=== PATIENT | male | born 1960 | race Caucasian/White ===

== ENCOUNTER → 2017-05-18 | Day surgery (SDC) | payer OTHER ==
[~2017-05-18] VITALS: Ht 180.3 cm; Wt 59.7 kg
[~2017-05-18] MED LIST: AUGMENTIN 875-1 EACH PO; BENGAY/ICY HOT/30 GM TOP; DESYREL50 MG PO; HYDROCODON-ACE1 EAC4 PO; PAXIL40 M1 PO; REMERON 30 MG30 MG PO; VISTARIL50 MG PO
--- NOTE | ~2017-05-18 | CON ---
PATIENT'S NAME: STEVEN OLSON [facility] AGE: 57 Y [address] ROOM: [place] [address] LOCATION: [facility] [place] ADMIT DATE: 05/18/2017 Consultation DISCHARGE DATE: FAMILY PHYSICIAN: PHYSICIAN, NO ATTENDING PHYSICIAN: JANETTE MITCHELL ER CONSULT CHIEF COMPLAINT: Right ring finger dog bite. HISTORY OF PRESENT ILLNESS: This is a 57-year-old male, who had a dog that was known to him bit his ring finger last Monday. He states there was no risk for the dog having rabies. This happened on Monday nearly a week ago. 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 He noticed increased pain and swelling and decided to seek medical care. Today, he was seen in the emergency room by Dr. Lucy Mallory, who consulted me. PAST MEDICAL HISTORY: Reviewed. He has history of depression. CURRENT MEDICATIONS: Paxil. ALLERGIES: NO KNOWN DRUG ALLERGIES. REVIEW OF SYSTEMS: Positive for smoking 30+ pack years. PHYSICAL EXAMINATION: GENERAL: The patient is alert and oriented x3, in no acute distress. HEAD: Normocephalic, atraumatic. NECK: Supple. Trachea midline. VITAL SIGNS: He has had no fevers. EXTREMITIES: He has no pain in his hand, wrist, and elbow. There is black eschar with necrotic skin at the distal phalanx of his right index finger. There is no hematoma subungual below the nail. There is tissue necrosis and tissue missing. There is no active drainage. LABORATORY DATA AND X-RAYS: X-rays 3 views of right hand ring finger distal phalanx shows foreign body present at the region of necrosis on the radial side of the index finger. He has decreased sensation in this region. The finger tip is necrotic and black. On examining the x-ray shows a small tuft fracture. The foreign body is PATIENT'S NAME: STEVEN OLSON [facility] AGE: 57 Y [address] ROOM: [place] [address] LOCATION: [facility] [place] ADMIT DATE: 05/18/2017 Consultation DISCHARGE DATE: FAMILY PHYSICIAN: PHYSICIAN, NO ATTENDING PHYSICIAN: JANETTE MITCHELL likely either a piece of bone or tooth from the dog bite. IMPRESSION AND PLAN: Dog bite, right dominant hand, ring finger at the distal phalanx. The patient is at risk for osteonecrosis. Further, if the skin is at the worst for osteomyelitis or infection of the bone that can result in loss of life or even loss of hand. Recommend acute irrigation and debridement. He understands that due to the amount of necrotic tissue, he may need multiple surgeries including irrigation and debridements and even skin grafts. We will give him antibiotics in the form of Rocephin, followed by Augmentin. He understands the risk of new medications that can cause anaphylaxis and even . He understands the risks of anesthesia and the surgery. He has been well informed of the risks, benefits, and potential complications. Plan is to take him emergently back to the OR for irrigation and debridement. JANETTE MITCHELL DO PH/modl /[id number] d: 05/18/17 2250 t: 05/23/17 1839, CONSULTATION REPORT
--- NOTE | ~2017-05-18 | OR ---
PATIENT'S NAME: STEVEN ENCARNACION [facility] AGE: 57 Y [address] ROOM: [place] [address] LOCATION: [facility] ADMIT DATE: 05/18/2017 OR/Procedure Report DISCHARGE DATE: FAMILY PHYSICIAN: PHYSICIAN, NO ATTENDING PHYSICIAN: TAJ HOWARD SURGEON: Taj Howard DO HARDWARE DESIGN ENGINEER: DATE OF PROCEDURE: 05/18/[address] Howard / 05-30-2017 / becca PREOPERATIVE DIAGNOSIS: Laceration, right dominant index finger, secondary to dog bite with retained foreign body and fracture of distal phalanx. POSTOPERATIVE DIAGNOSIS: Include necrotic finger tip and distal tissue plus laceration, right dominant index finger, secondary to dog bite with retained foreign body and fracture of distal phalanx. PROCEDURE PERFORMED: Irrigation and debridement right index finger using 3 L with debridement of all necrotic tissue and removal of foreign body and nail trephination due to the potential of forming a subungual hematoma. ESTIMATED BLOOD LOSS: Blood loss, minimal, less than 1. ANTIBIOTICS: 1 g IV Rocephin taken after cultures both anaerobic and aerobic. TOURNIQUET TIME: Tourniquet was not used. ANESTHESIA: Local digital nerve block using 10 mL of 0.5% plain Marcaine. COMPLICATIONS: None. INDICATIONS: Mr. 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 Works with his hands often. He was bit by a dog on Monday. We asked him about any potential rabies and he stated no. He noticed the laceration to his tip of his right ring finger. He tried to doctor it up himself and did not seek medical care until today. He was seen in the emergency room by Dr. Lucy Mallory, who consulted me for care. I discussed the risks, benefits, and potential complications with the patient. He has foreign body appearance with small fracture at the distal tip of the ring finger, likely sustained from this crush injury of the dog bite. There is a laceration that involves the majority of the tip of the finger tip. There is necrotic black tissue. There is no active pus or erythema. He does not have fever, chills, or signs of infection. My concerns with this dog bite piercing near the bone and creating the fracture is infection potential to form osteomyelitis of the bone, and recommended irrigation, debridement, and removal of all necrotic tissue. PATIENT'S NAME: STEVEN ENCARNACION [facility] AGE: 57 Y [address] ROOM: [place], [place] [address] LOCATION: [facility] ADMIT DATE: 05/18/2017 OR/Procedure Report DISCHARGE DATE: FAMILY PHYSICIAN: PHYSICIAN, NO ATTENDING PHYSICIAN: TAJ HOWARD DESCRIPTION OF PROCEDURE: After time-out initiated by me confirmed, 3 L of saline were utilized to irrigate the tissue. Good bleeding tissue after removing with sharp scalpel the necrotic portions of both skin and soft tissue pulp of the finger tip. Good bleeding tissue. I trephinated the nail to prevent subungual hematoma from lifting up the nail bed. After all 3 L of saline were irrigated, it was approximated loosely with 4-0 Prolene. He understands the tip may end up dying. He understands he could end up with a process that infects the bone known as osteomyelitis. He was given the antibiotic Rocephin and I will send him home on Augmentin. We will see him back in the office in one week. Sterile dressing was applied in the form of Xeroform laced with antibiotics, loosely wrapped soft roll, followed by Randy and Coban. Sponge and needle counts correct x3. Complications none. TAJ HOWARD DO PH/modl /[id number] Corrected per Dr. Howard / 05-30-2017 / kld d: 05/18/17 2347 t: 06/05/17 1454, OPERATIVE SUMMARY
--- NOTE | ~2017-05-18 | ER ---
PATIENT'S NAME: STEVEN OLSON [facility] AGE: 57 Y [address] ROOM: [place], [place] [address] [place] [facility] [place] DATE: 05/18/2017 ER/Outpatient Report DISCHARGE DATE: FAMILY PHYSICIAN: PHYSICIAN, NO ATTENDING PHYSICIAN: JANETTE HOWARD Time of Patient's Arrival: 1449 hours. Time of Patient's Evaluation: 1505 hours. CHIEF COMPLAINT: Dog bite, right ring finger. HISTORY OF PRESENT ILLNESS: This is a 57-year-old male who presents to the ER. He states he was bit by his neighbor's dog approximately 6 days ago. He states that he did not get evaluated for it initially. He states that he has been trying to keep the wound clean by rinsing it off, but noticed that it started looking discolored and has been oozing some purulent drainage. He has not been running any fevers at home; however, he is not for sure if he has or not because his air conditioner went out at home. He states he is not up to date on his tetanus shot. He believes his neighbor's dog is up to date in all its immunizations as well. He denies any other problems at this time. ALLERGIES: NO KNOWN ALLERGIES. MEDICATIONS: Please see medication list in nurse's notes. PAST MEDICAL HISTORY: Depression. PAST SURGERIES: [place] teeth removal. SOCIAL HISTORY: He smokes 1 pack a day for 30 years. Drinks alcohol occasionally. REVIEW OF SYSTEMS: CONSTITUTIONAL: He denies any change in weight or fatigue. MUSCULOSKELETAL: He is complaining of right 4th digit pain. SKIN: Has an open laceration from dog bite to the distal aspect of his right 4th finger. PHYSICAL EXAMINATION: PATIENT'S NAME: STEVEN OLSON [facility] AGE: 57 Y [address] ROOM: [place], [place] [address] [place] [facility] [place] DATE: 05/18/2017 ER/Outpatient Report DISCHARGE DATE: FAMILY PHYSICIAN: PHYSICIAN, [place] ATTENDING PHYSICIAN: JANETTE HOWARD VITAL SIGNS: Height 5 feet 11 inches stated, weight 64.3 kg taken, blood pressure 170/93, pulse 85, respirations 18, temperature 98.9 degrees tympanically, and saturations 94% room air. Ana María Coma Score is 15. GENERAL: Alert, calm, well-developed, 57-year-old, in no acute distress. LUNGS: Clear to auscultation bilaterally. HEART: Regular rate and rhythm. EXTREMITIES: No clubbing or cyanosis. He does have good range of motion of his right ring finger. He does have discomfort with palpation over the distal aspect of his right ring finger with palpation. SKIN: He has a 4-cm gaped open laceration noted to the volar aspect of the distal right 4th digit. The tip of the finger does have some necrotic tissue. LABORATORY DATA: None were done. X-RAYS: X-rays of the right ring finger show possible tuft fracture versus osteomyelitis. IMPRESSION: Dog bite to right ring finger with bone involvement ASSESSMENT AND PLAN: I discussed the patient's care with Dr. Mallory. Dr. Mallory also evaluated the patient. We did start a saline lock here in the emergency room and updated him on his tetanus shot. Dr. Mallory spoke with Dr. Howard who is clinical research monitor for orthopedic trauma this afternoon and he will be taking the patient to the OR for irrigation and debridement of the finger. We will be turning the care over to Dr. Howard at this time. The patient understands and agrees with care. DARION COFFEY PA-C FOR MD RENEE MOONEY/abigail /[id number] d: t: 05/24/17 1502, OUTPATIENT REPORT
== END | disposition disaster alternative care site (69) ==
LOC: GACC 14:49 → GSDC 15:56
PROC: 0HBQXZZ Excision of Finger Nail, External Approach (ICD-10-PCS; principal; 2017-05-18)
PROC: 0J9J00Z Drainage of Right Hand Subcutaneous Tissue and Fascia with Drainage Device, Open Approach (ICD-10-PCS; 2017-05-18)
DX: S61.224A Laceration with foreign body of right ring finger without damage to nail, initial encounter (principal); S62.634A Displaced fracture of distal phalanx of right ring finger, initial encounter for closed fracture; F32.9 Major depressive disorder, single episode, unspecified; K08.109 Complete loss of teeth, unspecified cause, unspecified class; F17.210 Nicotine dependence, cigarettes, uncomplicated; Z98.890 Other specified postprocedural states; W54.0XXA Bitten by dog, initial encounter
CPT/HCPCS: J0696; J7040; J7120